=== PATIENT | male | born 1955 | race African-American/Black ===

== ENCOUNTER 2017-05-19 19:21 | Emergency (ER) | payer OTHER ==
[~2017-05-19] VITALS: Ht 180.3 cm; Wt 76.3 kg
[~2017-05-19 19:21] MED LIST: ALBUAER2 INH; AMLO-114 PO; ASPITAB47 PO; ATOR10TA88 PO; BACL20TA PO; BENZ1TAB2 PO; CARB200T PO; CICL160A INH; DIPH25CA65 PO; DOCU100C31 PO; FIBER PO; LACT10SO17 PO; LACT12LO3 TD; LSN5 PO; NORT25CA PO; NORT50CA PO; POLY335019 PO; RISP3TAB12 PO; SELE1SHA3 TOP; ULT50X PO
[2017-05-19 19:27] VITALS: TEMP 36.7; Ht 180.3 cm; Wt 76.3 kg
[2017-05-19] MEDS ORDERED: PROPARACAINE HCL 0.5% OP SOLN 15 ML BTL OP STA (19:42)
--- NOTE | 2017-05-19 20:17 | EMERGENCY ROOM VISIT NOTE ---
History First contact with patient: 19:34 Chief Complaint: EYE PAIN Stated Complaint: LEFT EYE TRAUMA History of Present Illness The patient is a 61 year old male who presents to the Emergency Room with complaints of bleeding in his left eye that he noticed earlier this morning. He denies any significant pain or changes in vision. He does note a pressure in the left eye. The patient wears glasses at a baseline. He does not work contacts. He denies any foreign body sensation. He did not even notice the bleeding, another inmate told him that his eye was bleeding. He denies any trauma. Review of Systems 6 system review negative. Please see pertinent positives in the history of present illness section. Past Medical/Surgical History Medical Problems: (1) Asthma (2) Encephalopathy (3) Hepatitis C (4) Schizophrenia Surgical Problems: (1) History of neck surgery Family History Unknown Social History Smoking Status: Current Every Day Smoker Marital Status: single Housing Status: other Occupation Status: unemployed, other (incarcerated) Current/Historical Medications Scheduled Amlodipine (Norvasc), 10 MG PO QAM Ammonium Lactate (Lac-Hydrin), 1 APPLN TD DAILY Atorvastatin (Lipitor), 10 MG PO DAILY Baclofen (Lioresal), 20 MG PO BID Benztropine Mesylate (Cogentin), 2 MG PO BID Carbamazepine (Tegretol), 200 MG PO BID Ciclesonide (Alvesco), 1 PUFFS INH BID Diphenhydramine Hcl (Benadryl Allergy), 100 MG PO HS Docusate Sodium (Docusate Sodium), 200 MG PO BID Fiber Laxative (Fiber Laxative), 625 MG PO BID Lactulose (Chronulac), 30 ML PO BID Lisinopril (Lisinopril), 5 MG PO QAM Nortriptyline (Pamelor), 25 MG PO BID Nortriptyline (Pamelor), 50 MG PO BID Risperidone (Risperdal), 6 MG PO BID Selenium Sulfide (Selsun Blue), 1 APPLN TOP DAILY Scheduled PRN Albuterol (Ventolin Hfa), 2 PUFFS INH QID PRN for Shortness of Breath Idvqjab-Snyvzibkzlgcs-Tfskrijo (Pain Reliever Plus), 1 TAB PO BID PRN for Headache Polyethylene Glycol 3350 (Miralax), 2 TBS PO DAILY PRN for Constipation Tramadol HCl (Tramadol HCl), 25 MG PO Q6H PRN for Pain Physical Exam Vital Signs Date Time Temp Pulse Resp B/P (MAP) Pulse Ox O2 Delivery O2 Flow Rate FiO2 05/19/17 22:14 91 18 162/100 99 05/19/17 21:21 91 18 160/96 99 Room Air 05/19/17 19:27 36.7 93 18 142/88 99 Room Air Right Eye Acuity: 20/50 Left Eye Acuity: 20/50 Physical Exam VITALS: Vitals are noted on the nurse's note and reviewed by myself. Vital signs stable. GENERAL: 61-year-old male, in no acute distress SKIN: The skin was without rashes, erythema, edema, or bruising. HEAD: Normocephalic atraumatic. EYES: Pupils equal round and reactive to light and accommodation sclerae without icterus. Extraocular movements intact. Slight proptosis noted of the left eye. Insert Slit Lamp Exam Slit Lamp Examination was performed of the left eye(s). Alcaine drops were applied to the affected eye(s) for proper anesthetization. The affected eye(s) were stained with Fluorescein stain to precipitate adequate visualization of any conjunctival/scleral excoriations or ulcers. The patients face was comfortably rested on the chin guard of the slit lamp apparatus. The lights were dimmed and the affected eye(s) were thoroughly examined under microscopy using the blue light. No uptake was present On the cornea. Additionally, the eye(s) were examined under microscopy using the regular light. Close examination revealed significant subconjunctival hemorrhages particularly in the left lower quadrant of the eye. Patient tolerated the procedure well and no complications were met. Insert Optic Tonometry Alcaine drops were applied to the eyes bilaterally for adequate anesthetization. A clean tip protector was applied to the Tonometer. The Tonometry pen was properly calibrated prior to attaining orbital pressures. The pressures in the LEFT eye were found to be 12, 12, and 11. The pressures in the RIGHT eye were found to be 12, 14, and 15. Patient tolerated the procedure well and no complications were met. MUSCULOSKELETAL Normal gait. Strength 5/5 throughout. NEURO: Patient was alert and oriented to person place and time. Normal sensation to touch. No focal neurological deficits. Medical Decision & Procedures ER Provider Diagnostic Interpretation: CT ORBITS NO CONTRAST CT DOSE: CLINICAL HISTORY: L eye protrusion subconjunctival hemorrhage TECHNIQUE: Helical images were acquired in the transverse plane. Sagittal and coronal reformatted images were acquired A dose lowering technique was utilized adhering to the principles of ALARA. COMPARISON STUDY: None. FINDINGS: There is moderate right maxillary sinus mucosal thickening. No acute fractures are visualized. Visualized portions of the intracranial contents are unremarkable in appearance. No orbital masses are visualized in this noncontrast study. There is no CT evidence of significant proptosis. IMPRESSION: 1. Inflammatory changes within the right maxillary sinus 2. No fractures identified 3. No orbital masses identified. Electronically signed by: Hung Hussein M.D. 05/19/2017 8:53 PM Dictated Date/Time: 05/19/2017 8:47 PM The status of this report is Signed. Draft = Not yet reviewed or approved by Radiologist. Signed = Reviewed and approved by Radiologist. <AttendingPhy></AttendingPhy> <FamilyPhy>Eduardo RAMIREZ</FamilyPhy> <PrimaryPhy> [facility]</PrimaryPhy> <UnitNumber>[id number]</UnitNumber> <VisitNumber> [id number]</VisitNumber> <PatientName>WILBERTADRIA [id number]</PatientName> < DateOfBirth>1955</DateOfBirth> <Location>[facility]</Location> <ServiceDate></ServiceDate> <MNE>ESINDI</MNE> <OrderingPhy>Lana Ellis PA-C</ OrderingPhy> <OrderingPhyMNE>f rep ord dr [place]</OrderingPhyMNE> <DictatingPhyMNE> f rep dict dr [place]</DictatingPhyMNE> <CCListMNE>f rep ct mne</CCListMNE> < AdmittingPhyMNE>f pt admit dr [place]ada</AdmittingPhyMNE> <AttendingPhyMNE>f pt attend dr [place]ada</AttendingPhyMNE> <ConsultingPhyMNE>f pt consult dr [place]cada</ConsultingPhyMNE> <FamilyPhyMNE>f pt fam dr [place]cada</FamilyPhyMNE> <OtherPhyMNE>f pt other dr [place]cada</OtherPhyMNE> < PrimaryPhyMNE>f pt prim care dr moncada</PrimaryPhyMNE> <ReferringPhyMNE>f pt referring CT HEAD WITHOUT CONTRAST (CT) CLINICAL HISTORY: Left orbital proptosis. Subconjunctival hemorrhage. Pain.. COMPARISON STUDY: 02/22/2016 TECHNIQUE: Axial CT of the brain is performed from the vertex to the skull base. IV contrast was not administered for this examination. A dose lowering technique was utilized adhering to the principles of ALARA. CT DOSE: k FINDINGS: No intra or extra-axial mass lesions are visualized. There is no CT evidence of acute cortical infarction. There is no evidence of midline shift. There is no acute hemorrhage. No calvarial fractures are visualized. There are patchy white matter hypodensities likely on a small vessel basis. There is no evidence of pathologic ventricular dilatation. There is no evidence of acute sinusitis IMPRESSION: No acute intracranial findings Electronically signed by: Hung Hussein M.D. 05/19/2017 8:47 PM Dictated Date/Time: 05/19/2017 8:46 PM The status of this report is Signed. Draft = Not yet reviewed or approved by Radiologist. Signed = Reviewed and approved by Radiologist. Laboratory Results 05/19/17 20:20 Red Blood Count 4.61, Mean Corpuscular Volume 92.2, Mean Corpuscular Hemoglobin 32.8, Mean Corpuscular Hemoglobin Concent 35.5, Mean Platelet Volume 10.6, Neutrophils (%) (Auto) 37.9, Lymphocytes (%) (Auto) 42.4, Monocytes (%) (Auto) 16.1, Eosinophils (%) (Auto) 2.4, Basophils (%) (Auto) 0.8, Neutrophils # (Auto ) 1.86, Lymphocytes # (Auto) 2.08, Monocytes # (Auto) 0.79, Eosinophils # (Auto ) 0.12, Basophils # (Auto) 0.04 05/19/17 20:20 Test 05/19/17 20:20 White Blood Count 4.91 K/uL (4.8-10.8) Red Blood Count 4.61 M/uL (4.7-6.1) Hemoglobin 15.1 g/dL (14.0-18.0) Hematocrit 42.5 % (42-52) Mean Corpuscular Volume 92.2 fL (80-100) Mean Corpuscular Hemoglobin 32.8 pg (25-34) Mean Corpuscular Hemoglobin Concent 35.5 g/dl (32-36) Platelet Count 138 K/uL (130-400) Mean Platelet Volume 10.6 fL (7.4-10.4) Neutrophils (%) (Auto) 37.9 % Lymphocytes (%) (Auto) 42.4 % Monocytes (%) (Auto) 16.1 % Eosinophils (%) (Auto) 2.4 % Basophils (%) (Auto) 0.8 % Neutrophils # (Auto) 1.86 K/uL (1.4-6.5) Lymphocytes # (Auto) 2.08 K/uL (1.2-3.4) Monocytes # (Auto) 0.79 K/uL (0.11-0.59) Eosinophils # (Auto) 0.12 K/uL (0-0.5) Basophils # (Auto) 0.04 K/uL (0-0.2) RDW Standard Deviation 40.9 fL (36.4-46.3) RDW Coefficient of Variation 12.1 % (11.5-14.5) Immature Granulocyte % (Auto) 0.4 % Immature Granulocyte # (Auto) 0.02 K/uL (0.00-0.02) Prothrombin Time 11.2 SECONDS (9.0-12.0) Prothromb Time International Ratio 1.0 (0.9-1.1) Anion Gap 2.0 mmol/L (3-11) Est Creatinine Clear Calc Drug Dose 84.7 ml/min Estimated GFR () 95.1 Estimated GFR (Non- 82.0 BUN/Creatinine Ratio 14.7 (10-20) Calcium Level 8.3 mg/dl (8.5-10.1) Total Bilirubin 0.4 mg/dl (0.2-1) Aspartate Amino Transf (AST/SGOT) 39 U/L (15-37) Alanine Aminotransferase (ALT/SGPT) 61 U/L (12-78) Alkaline Phosphatase 121 U/L (45-117) Total Protein 7.0 gm/dl (6.4-8.2) Albumin 3.9 gm/dl (3.4-5.0) Globulin 3.1 gm/dl (2.5-4.0) Albumin/Globulin Ratio 1.3 (0.9-2) Thyroid Stimulating Hormone (TSH) 2.250 uIu/ml (0.300-4.500) Medications Administered Medications (Trade) Dose Ordered Sig/Sudhir Route Start Time Stop Time Status Last Admin Dose Admin Proparacaine HCl (Alcaine 0.5% Oph Soln) 2 drops ONE STAT OP 05/19/17 19:42 05/19/17 19:45 DC 05/19/17 19:42 2 DROPS ED Course Patient was seen and examined Vital signs including blood pressure were reviewed medications list was verified with patient Labs were obtained, and a saline lock was established Slit-lamp exam was performed in addition to tonometry Imaging was performed The patient was reassessed and resting comfortably. We discussed the findings of his workup. The case was discussed with supervising physician who personally evaluated the patient I spoke with the primary substance abuse counselor on-call, Dr. Salinas. We discussed the case. I reviewed discharge instructions the patient. They voiced understanding and had no further questions. Medical Decision Differential diagnosis: Trauma, subconjunctival hemorrhage, hyphema, globe injury, intracranial mass, periorbital mass, retro-orbital mass, hyperthyroidism , corneal injury This patient is a 61-year-old inmate that presented to emergency department with "bleeding in the left eye." Exam reveals a fairly significant subconjunctival hemorrhage. There is no trauma reported. The globe was intact. No corneal injury was noted. No hyphema on exam. Pressures were within normal limits. Vision was 20/50 bilaterally. Imaging was unremarkable. His blood pressure was stable. He is not coagulopathic. The etiology of this spontaneous subconjunctival hemorrhage is unclear. The case was discussed with ophthalmology. They recommended follow-up within 1 week if it doesn't begin to resolve. This was discussed the patient, and he was discharged in good condition. This chart was completed in part utilizing [employer] Speech Voice Recognition software. Attempts were made to minimize the grammatical errors, random word insertions, pronoun errors and incomplete sentences. Any formal questions or concerns about the content, text or information contained within the body of this dictation should be directly addressed to the provider for clarification. Medication Reconcilliation Current Medication List: was personally reviewed by me Blood Pressure Screening Patient's blood pressure: Normal blood pressure Impression Primary Impression: Subconjunctival hemorrhage of left eye Departure Information Dispostion Other (incarcerated) Condition GOOD Referrals [facility], [facility] (PCP) Pako Salinas D.O. Patient Instructions My [facility], Subconjunctival Hemorrhage Additional Instructions You were evaluated in the emergency department for blood in your left eye. It appears that you have a subconjunctival hemorrhage. This should resolve on its own. No strenuous activity for one week. If this does not resolve within one week, please contact the primary substance abuse counselor for follow-up Return to the emergency department if you have any of the following symptoms: -Significant eye pain -Changes in vision -Severe dizziness -Fever
[2017-05-19 20:34] LABS: BASO % 0.8 %; BASO ABS # 0.04 K/uL (0-0.2); COMPLETE YES; EOS % 2.4 %; HEMATOCRIT 42.5 % (42-52); IG% 0.4 %; LYMPH % 42.4 %; LYMPH ABS # 2.08 K/uL (1.2-3.4); MEAN CELL VOLUME 92.2 fL (80-100); MEAN CORPUSCULAR HEMOGLOBIN 32.8 pg (25-34); MEAN CORPUSCULAR HGB CONC 35.5 g/dl (32-36); MEAN PLATELET VOLUME 10.6 fL (7.4-10.4); MONO % 16.1 %; NEUT % 37.9 %; PLATELET COUNT 138 K/uL (130-400); RED BLOOD COUNT 4.61 M/uL (4.7-6.1); WHITE BLOOD COUNT 4.91 K/uL (4.8-10.8)
[2017-05-19 20:43] LABS: PROTHROMBIN TIME (PATIENT) 11.2 SECONDS (9.0-12.0)
--- NOTE | 2017-05-19 20:49 | DIAGNOSTIC IMAGING REPORT ---
CT HEAD WITHOUT CONTRAST (CT) CLINICAL HISTORY: Left orbital proptosis. Subconjunctival hemorrhage. Pain.. COMPARISON STUDY: 02/22/2016 TECHNIQUE: Axial CT of the brain is performed from the vertex to the skull base. IV contrast was not administered for this examination. A dose lowering technique was utilized adhering to the principles of ALARA. CT DOSE: k FINDINGS: No intra or extra-axial mass lesions are visualized. There is no CT evidence of acute cortical infarction. There is no evidence of midline shift. There is no acute hemorrhage. No calvarial fractures are visualized. There are patchy white matter hypodensities likely on a small vessel basis. There is no evidence of pathologic ventricular dilatation. There is no evidence of acute sinusitis IMPRESSION: No acute intracranial findings Electronically signed by: Hung Hussein M.D. 05/19/2017 8:47 PM Dictated Date/Time: 05/19/2017 8:46 PM
[2017-05-19 20:51] LABS: BUN/CREATININE RATIO 14.7 (10-20); CALCIUM 8.3 mg/dl (8.5-10.1)
--- NOTE | 2017-05-19 20:55 | DIAGNOSTIC IMAGING REPORT ---
CT ORBITS NO CONTRAST CT DOSE: CLINICAL HISTORY: L eye protrusion subconjunctival hemorrhage TECHNIQUE: Helical images were acquired in the transverse plane. Sagittal and coronal reformatted images were acquired A dose lowering technique was utilized adhering to the principles of ALARA. COMPARISON STUDY: None. FINDINGS: There is moderate right maxillary sinus mucosal thickening. No acute fractures are visualized. Visualized portions of the intracranial contents are unremarkable in appearance. No orbital masses are visualized in this noncontrast study. There is no CT evidence of significant proptosis. IMPRESSION: 1. Inflammatory changes within the right maxillary sinus 2. No fractures identified 3. No orbital masses identified. Electronically signed by: Hung Hussein M.D. 05/19/2017 8:53 PM Dictated Date/Time: 05/19/2017 8:47 PM
[2017-05-19 21:02] LABS: ALB/GLOB RATIO 1.3 (0.9-2); THYROID STIMULATING HORMONE 2.25 uIu/ml (0.300-4.500)
--- NOTE | 2017-05-19 21:39 | EMERGENCY ROOM VISIT NOTE ---
ED Visit Note First contact with patient: 19:34 The patient was seen and examined with Lana Ellis PA-C. I agree with the history, physical and findings. Please see the note for disposition and details.
[2017-05-19 22:14] VITALS: BP 162/100; PULSE 91; O2SAT 99
== END 2017-05-19 22:15 | disposition home or self-care (01) ==
LOC: C.EDB 19:23 → C.EDD 22:15
DX: H11.32 Conjunctival hemorrhage, left eye (principal); J45.909 Unspecified asthma, uncomplicated; F20.9 Schizophrenia, unspecified; F17.200 Nicotine dependence, unspecified, uncomplicated; Z98.890 Other specified postprocedural states; Z79.899 Other long term (current) drug therapy